=== PATIENT | male | born 1990 | race Caucasian/White ===

== ENCOUNTER 2019-06-07 19:34 | Emergency (ER) | payer OTHER ==
--- NOTE | 2019-06-07 20:41 | UC ---
Lower Extremity/Ankle HPI - HPI Summary HPI Summary: L foot pain started today after stubbing toe/foot - History of Current Complaint Chief Complaint: UCLowerExtremity Stated Complaint: L FOOT INJ Time Seen by Provider: 06/07/19 20:33 Hx Obtained From: Patient Pain Intensity: 8 Pain Scale Used: 0-10 Numeric Aggravating Factor(s): Standing Alleviating Factor(s): Rest - Allergies/Home Medications Allergies/Adverse Reactions: Allergies Allergy/AdvReac Type Severity Reaction Status Date / Time No Known Allergies Allergy Verified 06/07/19 20:14 Home Medications: Home Medications NK [No Home Medications Reported] 06/07/19 [History Confirmed 06/07/19] PMH/Surg Hx/FS Hx/Imm Hx Previously Healthy: Yes - Surgical History Surgical History: None - Family History Known Family History: Positive: Non-Contributory - Social History Alcohol Use: Weekly Substance Use Type: Marijuana Smoking Status (MU): Never Smoked Tobacco Review of Systems All Other Systems Reviewed And Are Negative: Yes Constitutional: Negative: Fever Musculoskeletal: Positive: Edema - L foot w/ pain Neurological/Mental Status: Negative: Weakness, Paresthesia Physical Exam Triage Information Reviewed: Yes Appearance: Well-Appearing Vital Signs: Initial Vital Signs Temp 98.4 F 06/07/19 20:07 Pulse 84 06/07/19 20:07 Resp 16 06/07/19 20:07 BP 134/79 06/07/19 20:07 Pulse Ox 99 06/07/19 20:07 Vital Signs Reviewed: Yes Respiratory: Positive: No respiratory distress Musculoskeletal: Positive: Edema @ - mild forefoot L, Other: - L forefoot has + CHEVAK'S TEST, unable to step on toes due to pain, pain w/ extension but not flexion of foot. Neurological: Positive: Alert Skin: Negative: Rashes Diagnostics - Radiology No standard instances Radiology Interpretation Completed By: ED Physician Summary of Radiographic Findings: no fx L foot Lower Extremity Course/Dx - Course Course Of Treatment: L foot pain w/ some swelling and prelim xray does not show fx. ibu for pain and final reading will be done tomorrow. - Differential Dx/Diagnosis Differential Diagnosis/HQI/PQRI: Sprain, Strain, Other Provider Diagnosis: Foot sprain Discharge ED - Sign-Out/Discharge Documenting (check all that apply): Patient Departure All imaging exams completed and their final reports reviewed: No - Discharge Plan Condition: Good Disposition: HOME Patient Education Materials: Foot Sprain (ED) Referrals: No Primary Care Phys,NOPCP [Primary Care Provider] - Additional Instructions: please read patient education. ok to take ibuprofen for pain - Billing Disposition and Condition Condition: GOOD Disposition: Home
--- NOTE | 2019-06-08 07:56 | UC ---
- Progress Note Progress Note: Final report of x-ray of the left foot reviewed: TECHNIQUE: 3 views of the left foot were obtained. FINDINGS: The soft tissues are unremarkable. The bone mineralization is within normal limits. No fracture is identified. Anatomic alignment is maintained. There is moderate osteoarthropathy of the first MTP IMPRESSION: NO FRACTURE IDENTIFIED. MODERATE FIRST MTP OSTEOPHYTE ARTHROPATHY. Wet read correct No change in plan Course/Dx - Diagnoses Provider Diagnoses: Foot sprain Discharge ED - Sign-Out/Discharge Documenting (check all that apply): Post-Discharge Follow Up All imaging exams completed and their final reports reviewed: Yes - Discharge Plan Condition: Good Disposition: HOME Patient Education Materials: Foot Sprain (ED) Referrals: No Primary Care Phys,NOPCP [Primary Care Provider] - Additional Instructions: please read patient education. ok to take ibuprofen for pain - Billing Disposition and Condition Condition: GOOD Disposition: Home
== END 2019-06-07 21:09 | disposition home or self-care (01) ==
LOC: UCEAST 19:34
DX: S93.602A Unspecified sprain of left foot, initial encounter (principal); R60.0 Localized edema; W22.8XXA Striking against or struck by other objects, initial encounter; Y92.9 Unspecified place or not applicable; M25.775 Osteophyte, left foot
CPT/HCPCS: 99202; G0463